=== PATIENT | male | born 1980 | race Caucasian/White ===

== ENCOUNTER 2016-11-25 19:07 | Emergency (ER) | payer SELFPAY ==
[2016-11-25] MEDS ORDERED: NORMAL SALINE 1000 ML 1,000 ML IV ONE (19:12)
--- NOTE | 2016-11-25 19:14 | ER Document Report ---
ED Head/Face/Scalp Injury <DONTA GREENFIELD - Last Filed: 11/26/16 00:29> - General Mode of Arrival: Medic Information source: Emergency Med Personnel <JUNIOR DESAI - Last Filed: 11/26/16 06:00> <HERMELINDA HARRY - Last Filed: 11/26/16 06:21> - General Chief Complaint: Unresponsive Stated Complaint: FALL-HEAD LACERATION Notes: Patient is a 36 y/o male presenting to the emergency department via EMS in [facility] after being found outside a family member's house unresponsive just prior to arrival. Patient's family stated to EMS that he had to have showed up sometime in the 30 min prior to calling EMS because that was the last time she went outside. Family states that the patient has a drinking problem. EMS EMS states that the patient became responsive en route and was violent, so they put him in 4 point restraints. Patient was 98% O2 saturation on room air. Patient's pupils were not equal (Left- 6mm, Right- 4mm). Patient is unable to provide any information besides his name due to altered mental status. (JUNIOR DESAI) - Related Data Allergies/Adverse Reactions: No Known Allergies Allergy (Verified 11/26/16 03:14) Past Medical History - General Information source: Emergency Med Personnel, [facility] Records - Social History Smoking Status: Current Every Day Smoker Cigarette use (# per day): Yes Frequency of alcohol use: Heavy Drug Abuse: Marijuana Family History: Reviewed & Not Pertinent <JUNIOR DESAI - Last Filed: 11/26/16 06:00> Review of Systems <DONTA GREENFIELD - Last Filed: 11/26/16 00:29> - Review of Systems -: Yes ROS unobtainable due to patient's medical condition <JUNIOR DESAI - Last Filed: 11/26/16 06:00> <HERMELINDA HARRY - Last Filed: 11/26/16 06:21> - Review of Systems Notes: ROS unobtainable due to patient's altered mental status. (JUNIOR DESAI) Physical Exam <DONTA GREENFIELD - Last Filed: 11/26/16 00:29> - Vital signs Interpretation: Normal - General General appearance: Alert, Other - Agitated, Extremely Intoxicated - HEENT Head: Normocephalic, Atraumatic Eyes: Normal Pupils: PERRL - Respiratory Respiratory status: No respiratory distress Chest status: Nontender Breath sounds: Normal Chest palpation: Normal - Cardiovascular Rhythm: Regular Heart sounds: Normal auscultation Murmur: No - Abdominal Inspection: Normal Distension: No distension Bowel sounds: Normal Tenderness: Nontender Organomegaly: No organomegaly - Back Back: Normal, Nontender - Extremities General upper extremity: Normal inspection, Nontender, Normal color, Normal ROM , Normal temperature General lower extremity: Normal inspection, Nontender, Normal color, Normal ROM , Normal temperature - Neurological Neuro grossly intact: Yes Cognition: Other - Intoxicated Adam Coma Scale Eye Opening: Spontaneous Adam Coma Scale Verbal: Oriented [place] Coma Scale Motor: Obeys Commands [place] Coma Scale Total: 15 Speech: Other - Slurred speech Motor strength normal: LUE, RUE, LLE, RLE - Psychological Associated symptoms: Aggressive, Agitated - Skin Skin Temperature: Warm Skin Moisture: Dry Skin Color: Normal <JUNIOR DESAI - Last Filed: 11/26/16 06:00> <HERMELINDA HARRY - Last Filed: 11/26/16 06:21> - Vital signs Vitals: Resp Pulse Ox 23 H 94 11/25/16 19:12 11/25/16 19:12 (DONTA GREENFIELD) (HERMELINDA HARRY) - General Notes: Patient is extremely combative requiring 4 point restraint for his safety and the safety of staff. (DONTA GREENFIELD) Course - Laboratory Result Diagrams: 11/25/16 19:08 11/25/16 19:08 - Diagnostic Test Radiology reviewed: Image reviewed, Reports reviewed - CT scans of the head and neck are unremarkable. - EKG Interpretation by Oh EKG shows normal: Sinus rhythm, [place], Intervals, QRS Complexes. abnormal: ST-T Waves - Anterolateral T abnormality Rate: Normal - 96 Rhythm: NSR P Waves: LAE - Transfer of Care Care transferred to following provider: Dr. Harry <DONTA GREENFIELD - Last Filed: 11/26/16 00:29> - Laboratory Result Diagrams: 11/25/16 19:08 11/25/16 19:08 <JUNIOR DESAI - Last Filed: 11/26/16 06:00> - Laboratory Result Diagrams: 11/25/16 19:08 11/25/16 19:08 <HERMELINDA HARRY - Last Filed: 11/26/16 06:21> - Re-evaluation Re-evalutation: 11/25/16 23:12 The patient's alcohol level was 393. There were no areas of swelling or other injury found on his scalp with palpation and inspection. CT scan of the head and neck are unremarkable. At one point the patient and his father got in a yelling match, the gist of which indicates this is not a new problem for this patient. At this time it appears this may only be a case of extreme intoxication with no injury 11/26/16 00:24 The patient's alcohol level will be approaching 100 about 10 AM this morning. (DONTA GREENFIELD) 11/26/16 03:22 Patient was becoming agitated. Nurse made me aware. I went and evaluated the patient. Patient is in no distress. I sat down and talked home. Patient is requesting something to eat and canal the restraints. I informed him that we will list the restraints on his wrist and allow him to eat but yesterday agreed to behave in to show that he is able to act appropriately despite his current intoxication. Patient agrees to this. Patient still slurring his words some. ( HERMELINDA HARRY) - Vital Signs Vital signs: Temp Pulse Resp BP Pulse Ox 97.9 F 13 133/90 H 100 11/26/16 03:45 11/26/16 05:01 11/26/16 05:01 11/26/16 05:01 (DONTA GREENFIELD) (HERMELINDA HARRY) - Laboratory Laboratory results interpreted by me: 11/25/16 11/25/16 11/25/16 19:08 19:08 19:15 Sodium 145.2 H Magnesium 2.7 H Creatine Kinase 400 H Urine Glucose (UA) 50 H Salicylates < 1.0 L Acetaminophen < 10 L Phenytoin < 3.0 L Serum Alcohol 393 H* (DONTA GREENFIELD) (HERMELINDA HARRY) - Transfer of Care Notes: 11/26/16 00:27 The patient remains restrained for the time being. He will wake up and talk and complain about the restraints, but will not commit to cooperate. Details about his regular alcohol consumption is not available, so arrangements for discharge for probably be made in the stack yield engineer before his alcohol level gets too low. Discharge instructions are written assuming has an uneventful night, and a responsible sober adult can pick him up before his alcohol level gets too low. If these conditions cannot be met, then the discharge instructions are to be torn up, and other arrangements made. (DONTA GREENFIELD) 11/26/16 06:20 Patient is awake and alert. He is acting appropriately now. He has friends at bedside that will drive him home. He is able to enjoy without any difficulty. He is clinically sober and stable for discharge. I did talk to him at length and informed him that he should cut back on his alcohol intake. I encouraged return to ER if he has any further concerns or questions. Patient agrees with plan will be discharged home. (HERMELINDA HARRY) Discharge <DONTA GREENFIELD - Last Filed: 11/26/16 00:29> <JUNIOR DESAI - Last Filed: 11/26/16 06:00> <HERMELINDA HARRY - Last Filed: 11/26/16 06:21> - Discharge Clinical Impression: Chronic alcoholism Alcohol intoxication Qualifiers: Complication of substance-induced condition: with unspecified complication Qualified Code(s): F10.129 - Alcohol abuse with intoxication, unspecified Condition: Stable Disposition: HOME, SELF-CARE Additional Instructions: Acute Alcohol Intoxication: Your evaluation revealed very high levels of alcohol. You can from drinking a large amount of alcohol rapidly! Further, there's the risk of falls , traffic accidents, and fights. A high portion (about 50 percent) of the serious injuries seen in hospital emergency rooms are caused by alcohol. Alcohol overdosage is usually due to an underlying emotional or psychiatric problem. You may benefit from counselling. If "binge" drinking is an ongoing problem for you, or if you drink ANY AMOUNT of alcohol EVERY day, you most likely have a tendency to alcoholism. You should avoid alcohol totally. We can refer you for treatment. Persons with alcohol problems are often also prone to other addictions -- you should discuss any use of medications or drugs with the doctor. You should be watched at home for the next several hours by someone who has not been drinking. Get extra fluids for the next 24 hours. Call the doctor if there is repeated vomiting, increasing headache, decreasing level of alertness, or any other worsening. RETURN TO THE EMERGENCY ROOM IF ANY NEW OR WORSENING SYMPTOMS. Scribe Attestation: 11/26/16 00:31 I personally performed the services described in the documentation, reviewed and edited the documentation which was dictated to the scribe in my presence, and it accurately records my words and actions. (DNOTA GREENFIELD) Scribe Documentation - Scribe Written by Sonia:: Junior Desai 11/25/2016 19:14 acting as scribe for :: Michael <JUNIOR DESAI - Last Filed: 11/26/16 06:00>
[2016-11-25 19:24] LABS: ABSOLUTE BASOPHILS # (AUTO) 0.1 10^3/uL (0.0-0.2); ABSOLUTE EOSINOPHILS # (AUTO) 0.1 10^3/uL (0.0-0.6); ABSOLUTE LYMPHOCYTES (AUTO) 2.4 10^3/uL (0.5-4.7); ABSOLUTE MONOCYTES (AUTO) 0.6 10^3/uL (0.1-1.4); ABSOLUTE NEUT (AUTO) 5.3 10^3/uL (1.7-8.2); BASOPHILS % (AUTO) 0.8 % (0-2); EOSINOPHILS % (AUTO) 1.2 % (0-6); HEMATOCRIT 45.2 % (37.9-51.0); HEMOGLOBIN 15.3 g/dL (13.5-17.0); HGB HCT DIFFERENCE 0.7; MEAN CORPUSCULAR HEMOGLOBIN 30.5 pg (27.0-33.4); MEAN CORPUSCULAR HGB CONC 33.8 g/dL (32.0-36.0); MEAN CORPUSCULAR VOLUME 90 fl (80-97); MONOCYTES % (AUTO) 7.5 % (3-13); SEGMENTED NEUTROPHILS % (AUTO) 62.5 % (42-78); WHITE BLOOD COUNT 8.5 10^3/uL (4.0-10.5)
[2016-11-25 19:28] LABS: PROTHROMBIN TIME 11.6 SEC (11.4-15.4)
[2016-11-25 19:49] LABS: ALANINE AMINOTRANSFERASE 40 U/L (21-72); ALBUMIN 4.4 g/dL (3.5-5.0); ALKALINE PHOSPHATASE 58 U/L (38-126); ANION GAP 13 (5-19); ASPARTATE AMINO TRANSFERASE 43 U/L (17-59); BILIRUBIN,TOTAL 0.3 mg/dL (0.2-1.3); BLOOD UREA NITROGEN 10 mg/dL (7-20); CALCIUM 9.3 mg/dL (8.4-10.2); CARBON DIOXIDE 30 mmol/L (22-30); CHLORIDE 102 mmol/L (98-107); CREATINE KINASE 400 U/L (55-170); GLUCOSE 100 mg/dL (75-110); MAGNESIUM 2.7 mg/dL (1.6-2.3); POTASSIUM 4.2 mmol/L (3.6-5.0); SODIUM 145.2 mmol/L (137-145); TOTAL PROTEIN 6.6 g/dL (6.3-8.2)
[2016-11-25 20:02] LABS: ALCOHOL 393 mg/dL (NONE DETECTED)
[2016-11-25 20:04] LABS: TROPONIN I < 0.012 ng/mL
[2016-11-25 20:15] LABS: APPEARANCE,URINE CLEAR; BILIRUBIN,URINE NEGATIVE (NEGATIVE); GLUCOSE, URINE 50 mg/dL (NEGATIVE); KETONES,URINE NEGATIVE (NEGATIVE); LEUKOCYTE ESTERASE,URINE NEGATIVE (NEGATIVE); NITRITE,URINE NEGATIVE (NEGATIVE); PROTEIN,URINE NEGATIVE (NEGATIVE); URINE SPECIFIC GRAVITY 1.004; UROBILINOGEN,URINE NEGATIVE mg/dL (<2.0)
[2016-11-25 20:29] LABS: URINE BARBITURATES SCREEN NEGATIVE; URINE METHADONE SCREEN NEGATIVE; URINE PHENCYCLIDINE SCREEN NEGATIVE
[2016-11-25 20:44] LABS: ADD ON TESTING BLD IN LAB ACKNOWLEDGE
--- NOTE | 2016-11-25 22:39 | EKG REPORT ---
SEVERITY:- BORDERLINE ECG - SINUS RHYTHM PROBABLE LEFT ATRIAL ABNORMALITY BORDERLINE T ABNORMALITIES, ANT-LAT LEADS : Confirmed by: Shola Winchester MD 25-Nov-2016 22:38:53
[2016-11-26 05:30] VITALS: BP 133/90
== END 2016-11-26 05:30 | disposition home or self-care (01) ==
LOC: EDBD 19:07 → ER 19:07
DX: F10.229 Alcohol dependence with intoxication, unspecified (principal); F17.210 Nicotine dependence, cigarettes, uncomplicated; R45.6 Violent behavior; Z78.1 Physical restraint status
CPT/HCPCS: 93005; 99285; 96360; 36415; 82553; 82550; 83735; 80185; 85025; 85610; 80053; 81001; 84484; 70450; 72125; 93010; G0479 ×4; J7030; 80301; 80302

== ENCOUNTER 2017-02-20 10:39 | Emergency (ER) | payer SELFPAY ==
--- NOTE | 2017-02-20 11:05 | ER Document Report ---
ED Medical Screen (RME) - General Stated Complaint: WORK INJURY/KNEE PAIN Notes: Patient was hit just above right knee by tree at work last Sunday. Patient is still having pain and swelling. She is able to ambulate but he has to use a cane. Patient has history of lower right femur fracture, and lower right leg fracture. I have greeted and performed a rapid initial assessment of this patient. A comprehensive ED assessment and evaluation of the patient, analysis of test results and completion of the medical decision making process will be conducted by additional ED providers. TRAVEL OUTSIDE OF THE [place] IN LAST 30 DAYS: No - Related Data Allergies/Adverse Reactions: No Known Allergies Allergy (Verified 02/20/17 11:01) Past Medical History - Immunizations Hx Diphtheria, Pertussis, Tetanus Vaccination: - unknown Physical Exam - Vital signs Vitals: Temp Pulse Resp BP Pulse Ox 98.3 F 85 16 130/86 H 97 02/20/17 11:00 02/20/17 11:00 02/20/17 11:00 02/20/17 11:00 02/20/17 11:00 - Extremities Notes: Swelling noted to right knee. Tender anterior, medial and lateral right knee. Course - Vital Signs Vital signs: Temp Pulse Resp BP Pulse Ox 98.3 F 85 16 130/86 H 97 02/20/17 11:00 02/20/17 11:00 02/20/17 11:00 02/20/17 11:00 02/20/17 11:00
[2017-02-20] MEDS ORDERED: OXYCODONE-ACETAMINOPHEN 5-325 MG TABLET PO ONE (12:09)
--- NOTE | 2017-02-20 12:11 | ER Document Report ---
ED Extremity Problem, Lower - General Chief Complaint: Knee Injury Stated Complaint: WORK INJURY/KNEE PAIN Time seen by provider: 12:09 Mode of Arrival: Ambulatory Information source: Patient Notes: This is a 36-year-old man that presents to the emergency room with right lower extremity pain (knee and thigh) after an accident 4 days ago. Patient states that they were clearing some [place] his friend was driving a bulldozer and a tree came out from underneath the bulldozer and swelling towards the patient hitting him in the right thigh and knee. The patient was standing beside the bulldozer at that time. He presents with persistent pain. TRAVEL OUTSIDE OF THE [place] IN LAST 30 DAYS: No - HPI Patient complains to provider of: Injury, Pain, Swelling Location: Knee, Thigh Occurred: Last week - Last Sunday (4 days ago) Where: [place]doors Onset/Duration: Sudden Quality of pain: Dull Severity: Moderate Pain Level: 3 Context: Direct blow Recent injury: Yes Associated symptoms: denies: Chest pain, Chills, Dizzy, Fainting, Fever, Emmons a crack, Emmons a pop, Hurts to breath, Painful ambulation, Rapid heart rate, Seizure, Short of breath, Sweaty, Unable to bear weight, Weak, Other Exacerbated by: Movement Relieved by: Rest - Related Data Allergies/Adverse Reactions: No Known Allergies Allergy (Verified 02/20/17 11:01) Past Medical History - General Information source: Patient - Social History Smoking Status: Current Every Day Smoker Cigarette use (# per day): Yes - 1 pack per day Chew tobacco use (# tins/day): No Frequency of alcohol use: Social Drug Abuse: None Lives with: Family Family History: Reviewed & Not Pertinent Patient has suicidal ideation: No Patient has homicidal ideation: No - Medical History Medical History: Negative Renal/ Medical History: Denies: Hx Peritoneal Dialysis Surgical Hx: Negative - Immunizations Hx Diphtheria, Pertussis, Tetanus Vaccination: - unknown Review of Systems - Review of Systems Notes: Review of systems: Constitutional: Denies fever, chills. EENT: Denies ear pain, sinus tenderness, throat pain, throat swelling. Cardiovascular: Denies chest pain, palpitations, dyspnea or edema. Respiratory: Denies wheezing, cough, hemoptysis. Abdomen: Denies abdominal pain, nausea, vomiting, diarrhea. Denies BRBPR or melena. Genitourinary: Denies dysuria, pyuria, hematuria, flank pain. Musculoskeletal: See H&P Neurologic: Denies headache, photophobia, neck stiffness, weakness. Denies loss of bowel or bladder function. Denies saddle anesthesia. Skin: Denies rash, lesions. Physical Exam - Vital signs Vitals: Temp Pulse Resp BP Pulse Ox 98.3 F 85 16 130/86 H 97 02/20/17 11:02/20/17 11:02/20/17 11:02/20/17 11:02/20/17 11:00 Notes: Physical exam: GENERAL: 36-year-old man, alert and oriented 3, no acute distress. HEAD: Atraumatic, normocephalic. EYES: Pupils equal round and reactive to light, extraocular movements intact, sclera anicteric, conjunctiva are normal. ENT: TMs normal, nares patent, oropharynx clear without exudates. Moist mucous membranes. NECK: Normal range of motion, supple without lymphadenopathy or JVD. LUNGS: Breath sounds clear to auscultation bilaterally and equal. No wheezes rales or rhonchi. HEART: Regular rate and rhythm without murmurs, rubs or gallops. ABDOMEN: Soft, normoactive bowel sounds. No tenderness to palpation. No guarding, no rebound. No masses appreciated. EXTREMITIES: Patient does have tenderness over the anterior thigh and the skin tissue. There is bruising to the thigh just above the knee joint. He does have some swelling around the knee joint with some effusion. There is no warmth or erythema over the joint. There is pain with range of motion. Distally, the extremity is neurovascularly intact. NEUROLOGICAL: Cranial nerves II through XII grossly intact. Normal speech, normal gait. PSYCH: Normal mood, normal affect. SKIN: Warm, Dry, normal turgor, no rashes or lesions noted. Course - Vital Signs Vital signs: Temp Pulse Resp BP Pulse Ox 98.3 F 85 16 130/86 H 97 02/20/17 11:02/20/17 11:02/20/17 11:02/20/17 11:02/20/17 11:00 - Diagnostic Test Radiology reviewed: Image reviewed, Reports reviewed - X-rays show a small effusion to the right knee joint. Clinically, there is no patella subluxation or dislocation. Discharge - Discharge Clinical Impression: contusion right thigh, contusion right knee Condition: Stable Disposition: HOME, SELF-CARE Instructions: Ice & Elevation ([facility]), Use of Crutches ([facility]), Oral Narcotic Medication ([facility]) Additional Instructions: Recommendations: Ice, elevation. Take Percocet as needed for pain: See the narcotic instruction sheet. Take ibuprofen: 600 mg every 6 hours for pain. Return to the ER for worsening pain, fever (temperature greater than 100.5), increased swelling. Follow-up with the orthopedic surgeon: I left the number for Dr. Hendricks The pain medicine you're taking prescribed as a narcotic. There are several important things you should know about this medicine: 1. This medicine contains Tylenol: It is important that you do not take Tylenol (or acetaminophen) while on this medicine. Tylenol is metabolized by the liver and taking too much Tylenol (acetaminophen) can lay to liver damage and even liver failure. 2. Taking narcotics for too long can lead to physical and mental dependence. Take this medicine only if really needed and in the lowest quantity to achieve pain relief. 3. Do not drink alcohol while on this medicine. Alcohol interacts with narcotics and the combination can be dangerous. 4. Do not drive or operate machinery while on this medicine. 5. Narcotics do cause constipation, so drink plenty of fluids and daily stool softeners. Prescriptions: Oxycodone HCl/Acetaminophen [Percocet 5-325 mg Tablet] 1 - 2 tab PO ASDIR PRN # 25 tablet PRN Reason: Referrals: BRANT HENDRICKS MD [ACTIVE STAFF] - Follow up as needed
[2017-02-20 14:41] VITALS: BP 132/88
== END 2017-02-20 14:37 | disposition home or self-care (01) ==
LOC: ER 10:39
DX: S70.11XA Contusion of right thigh, initial encounter (principal); S80.01XA Contusion of right knee, initial encounter; M79.89 Other specified soft tissue disorders; X58.XXXA Exposure to other specified factors, initial encounter; F17.210 Nicotine dependence, cigarettes, uncomplicated
CPT/HCPCS: 99283; 73564; L1830